=== PATIENT | female | born 1940 | race Hispanic/Latino ===

== ENCOUNTER 2018-02-10 16:48 | Emergency (ER) | payer OTHER ==
[~2018-02-10 16:48] MED LIST: ALBU8.5H8 IH; ASPI-888 PO; ATEN50TA PO; LEVO50TA11 PO; LISI-617 PO; SIMV40TA5 PO
== END 2018-02-10 19:19 | disposition home or self-care (01) ==
LOC: EDH 16:48
DX: M79.604 Pain in right leg (principal); I10 Essential (primary) hypertension; E78.5 Hyperlipidemia, unspecified; E07.9 Disorder of thyroid, unspecified; Z98.890 Other specified postprocedural states
CPT/HCPCS: 93971

== ENCOUNTER → 2018-03-16 | Outpatient (CLI) | payer OTHER | END | disposition home or self-care (01) | LOC: RAH 12:30 | PROVIDERS: ATTEND Internal Medicine | DX: I70.90 Unspecified atherosclerosis (principal); L98.499 Non-pressure chronic ulcer of skin of other sites with unspecified severity | CPT/HCPCS: 93926 ==

== ENCOUNTER 2019-03-05 08:25 | Inpatient (IN) | payer OTHER ==
[~2019-03-05] VITALS: Ht 170.2 cm; Wt 74.4 kg
[~2019-03-05 08:25] MED LIST changes: +SIMV-46 PO; -SIMV40TA5 PO
[2019-03-05] MEDS ORDERED: ASPIRIN 81MG TAB.CHEW ONE (08:57)
[2019-03-05] MEDS ORDERED: SODIUM CHLORIDE 0.9% 100 ML IV ONE (08:57)
[2019-03-05] MEDS ORDERED: DILTIAZEM HCL 125 MG/25 ML VIAL IV ONE (08:58)
[2019-03-05 09:07] LABS: BASOPHILS % (AUTO) 0.6 % (0.0-5.0); EOSINOPHILS % (AUTO) 2.3 % (0.0-8.0); HEMATOCRIT 38.7 % (36-48); LYMPHOCYTES % (AUTO) 11.6 % (21.0-51.0); MEAN CORPUSCULAR HEMOGLOBIN 29.9 pg (27.0-33.0); MONOCYTES % (AUTO) 10.4 % (3.0-13.0); NEUTROPHILS % (AUTO) 75.1 % (40.0-77.0); PLATELET COUNT (AUTO) 214 K/uL (130-400); RED CELL DISTRIBUTION WIDTH 13.8 % (11.0-15.5); WHITE BLOOD COUNT (AUTO) 10.1 K/uL (4.8-10.8)
[2019-03-05 09:08] LABS: POTASSIUM 3.7 mmol/L (3.5-5.1)
[2019-03-05 09:13] LABS: ALBUMIN 3.2 g/dL (3.5-5.0); BILIRUBIN,TOTAL 0.8 mg/dL (0.2-1.0); TOTAL PROTEIN, SERUM 7.4 g/dL (6.0-8.3)
[2019-03-05 09:17] LABS: INR 1.03 (0.85-1.15); PROTHROMBIN TIME 10.8 SEC (9.6-11.6)
[2019-03-05 09:18] LABS: APPEARANCE,URINE Clear (CLEAR); BILIRUBIN,URINE Negative (NEGATIVE); COLOR,URINE Yellow (YELLOW); GLUCOSE, URINE (UA) Negative (NEGATIVE); KETONES,URINE Trace mg/dL (NEGATIVE); LEUKOCYTE ESTERASE ,URINE Negative (NEGATIVE); NITRATE,URINE Negative (NEGATIVE); OCCULT BLOOD,URINE Trace (NEGATIVE); PH,URINE 6.5 (5.0-8.0); PROTEIN,URINE Negative (NEGATIVE)
[2019-03-05 09:33] LABS: BACTERIA,URINE Rare /HPF (None Seen); WBC,URINE 0-1 /HPF (0-1)
[2019-03-05 09:34] LABS: SQUAMOUS EPITHELIAL CELL,UR 0-2 /HPF (0-2)
[2019-03-05 09:38] LABS: B-TYPE NATRIURETIC PEPTIDE 129 pg/mL (0-100)
[2019-03-05] MEDS ORDERED: CEFTRIAXONE SODIUM 1 GM ONE (11:12)
[2019-03-05] MEDS ORDERED: LEVOFLOXACIN 500 MG/D5W 100 ML 100 ML ONE (11:12)
[2019-03-05] MEDS ORDERED: CALC1TAB2 PO (11:15)
[2019-03-05] MEDS ORDERED: ATEN25TA PO (11:15)
[2019-03-05] MEDS ORDERED: CHOL100044 PO (11:15)
[2019-03-05] MEDS ORDERED: ALBUTEROL SULFATE 0.083% 2.5 MG/3 ML INH IH PRN ×2 (11:30→14:00)
[2019-03-05] MEDS ORDERED: DILTIAZEM HCL 180 MG CAP.SR.24H PO SCH (11:30)
--- NOTE | 2019-03-05 11:47 | NUR ---
DCP: HOME Sw met with pt and daughters at bedside. Daughter Pebbles Agudelo [phone] is ER contact. pt lives independently at home alone, drives, has no DME or HH services. Pt denies dc needs, plan is home at dc Addendum: 03/05/19 at 1148 by LEONARDO SNEED Amended: Links added.
[2019-03-05] MEDS ORDERED: ALBUTEROL SULFATE 0.083% 2.5 MG/3 ML INH IH ONE ×2 (11:54→18:22)
[2019-03-05] MEDS ORDERED: ACETAMINOPHEN 325 MG TAB PO PRN ×2 (14:00)
[2019-03-05] MEDS ORDERED: POTASSIUM CHLORIDE 20 MEQ ERTAB PO PRN (14:00)
[2019-03-05] MEDS ORDERED: POTASSIUM CHLORIDE 20MEQ/100ML 100 ML IV PRN (14:00)
[2019-03-05] MEDS ORDERED: METOPROLOL TARTRATE 1 MG/ML 5ML VIAL IV PRN (14:00)
[2019-03-05] MEDS ORDERED: ONDANSETRON HCL 4 MG/2 ML VIAL IV PRN (14:00)
[2019-03-05] MEDS ORDERED: GUAIFENESIN-DM 200/20 MG 10 ML PO PRN (14:00)
[2019-03-05] MEDS ORDERED: LIDOCAINE HCL-MPF 1% 2ML VIAL IV PRN (14:00)
[2019-03-05] MEDS ORDERED: MAG HYDROX/AL HYDROX/SIMETH ES 30 ML SUSP UDCUP PO PRN (14:00)
[2019-03-05] MEDS: METHYLPREDNISOLONE SOD SUCC 125MG/2ML VIAL IVP SCH ×2 (14:00→22:29)
[2019-03-05] MEDS ORDERED: POTASSIUM CHLORIDE 10% ELIXIR 20 MEQ/15 ML UDCUP PO PRN (14:00)
[2019-03-05] MEDS ORDERED: CEFTRIAXONE SODIUM 1 GM IV SCH (14:00)
[2019-03-05] MEDS ORDERED: DIPHENHYDRAMINE HCL 25 MG CAPSULE PO PRN (14:00)
[2019-03-05] MEDS ORDERED: LACTULOSE 20 GM/30 ML UDCUP PO PRN (14:00)
[2019-03-05] MEDS ORDERED: DiphenhydrAMINE HCL 50 MG/ML VIAL IV PRN (14:00)
[2019-03-05] MEDS ORDERED: METHYLPREDNISOLONE SOD SUCC 40MG/ML 1ML ONE (15:53)
[2019-03-05] MEDS ORDERED: ENOXAPARIN SODIUM 30 MG/0.3 ML SQ ONE (15:53)
[2019-03-05] MEDS ORDERED: PANTOPRAZOLE SODIUM 40 MG TABLET.DR PO ONE (15:54)
[2019-03-05] MEDS ORDERED: ZOLPIDEM TARTRATE 5 MG TAB PO PRN (19:00)
[2019-03-05 19:43] LABS: CREATINE KINASE, TOTAL 43 U/L (21-232); MYOGLOBIN 45 ng/mL (10-92); TROPONIN I < 0.04 ng/mL (0.00-0.06)
[2019-03-05 20:05] VITALS: BP 98/50
--- NOTE | 2019-03-05 20:10 | NUR ---
ASSESSMENT PATIENT WAS TRANSFERRED BY STRETCHER FROM ER BY NURSE. PATIENT WAS TRANSFERRED TO BED AND APPEARED SLIGHTLY SOB ON EXERTION. PATIENT IS ALERT AND ORIENTED TO PERSON, PLACE, AND TIME. NO SIGNS OF DISTRESS. NO COMPLAINTS OF PAIN AT THIS TIME. PATIENT WAS ORIENTED TO ROOM AND CALL LIGHT WITHIN REACH. FAMILY AT BEDSIDE. NO QUESTIONS, CONCERNS, OR NEEDS AT THIS TIME.
[2019-03-05 20:54] VITALS: BP 102/53
[2019-03-05] MEDS ORDERED: DILTIAZEM HCL 120 MG CAP.SR.24H PO SCH (21:00)
--- NOTE | 2019-03-05 22:45 | NUR ---
DIAPHORETIC PATIENTS DAUGHTER CAME OUT OF ROOM AND VOICED THAT THE PATIENT WAS PROFUSELY SWEATING AND WAS COOL TO TOUCH. ON ASSESSMENT PATIENT WAS IN A DEEP SLEEP. WAS AROUSABLE TO VOICE. VOICED NO COMPLAINTS. PATIENTS BP WAS 103/53 WITH HR IN THE 60S. PATIENT TEMP WAS 98.3 AND A RANDOM GLUCOSE OF 224. PATIENT VOICES THAT SHE FEELS FINE OTHER THAN BEING SWEATY. WILL CONTINUE TO MONITOR PATIENT.
[2019-03-05 23:32] LABS: CREATINE KINASE, TOTAL 32 U/L (21-232); MYOGLOBIN 46 ng/mL (10-92); TROPONIN I < 0.04 ng/mL (0.00-0.06)
[2019-03-05 23:41] VITALS: BP 93/49
[2019-03-06 03:35] LABS: HEMATOCRIT 38.2 % (36-48); MEAN CORPUSCULAR HEMOGLOBIN 30.2 pg (27.0-33.0); MEAN CORPUSCULAR VOLUME 88.8 fL (79-99); PLATELET COUNT (AUTO) 216 K/uL (130-400); RED CELL DISTRIBUTION WIDTH 13.8 % (11.0-15.5); WHITE BLOOD COUNT (AUTO) 9.4 K/uL (4.8-10.8)
[2019-03-06 03:42] LABS: CREATININE 1.1 mg/dL (0.5-1.5); POTASSIUM 4.1 mmol/L (3.5-5.1)
--- NOTE | 2019-03-06 04:00 | NUR ---
ASSESSMENT PATIENT IS RESTING IN BED. FAMILY AT BEDSIDE. NO COMPLAINTS OF PAIN AT THIS TIME. NO SIGNS OF DISTRESS. NO SHORTNESS OF BREATH. CALL LIGHT WITHIN REACH. BEDSIDE TABLE WITHIN REACH. VOICES NO QUESTIONS, CONCERNS, OR NEEDS AT THIS TIME. PATIENT REINFORCED TO CALL FOR ANY NEEDS.
[2019-03-06 04:10] VITALS: BP 114/44
[2019-03-06] MEDS: METHYLPREDNISOLONE SOD SUCC 125MG/2ML VIAL IVP SCH (06:44)
[2019-03-06] MEDS ORDERED: SODIUM CHLORIDE 0.9% 1000ML 1,000 ML IV SCH (07:00)
[2019-03-06] MEDS ORDERED: ROSU5TAB12 PO (07:02)
[2019-03-06] MEDS ORDERED: DILT-36 PO (07:02)
[2019-03-06] MEDS ORDERED: LEVO500T2 PO (07:03)
[2019-03-06] MEDS ORDERED: PANTOPRAZOLE SODIUM 40 MG TABLET.DR PO SCH (07:30)
[2019-03-06] MEDS ORDERED: LEVOTHYROXINE 50 MCG TABLET PO SCH (07:30)
[2019-03-06 07:57] VITALS: BP 119/57
[2019-03-06] MEDS ORDERED: LEVOFLOXACIN 500 MG TABLET PO SCH (09:00)
[2019-03-06] MEDS ORDERED: ASPIRIN 81 MG EC TAB PO SCH (09:00)
[2019-03-06] MEDS ORDERED: SIMVASTATIN 20 MG TABLET PO SCH (09:00)
[2019-03-06] MEDS ORDERED: LISINOPRIL 5 MG TABLET PO SCH (09:00)
[2019-03-06] MEDS ORDERED: DILTIAZEM HCL 120 MG CAP.SR.24H PO SCH (09:00)
[2019-03-06] MEDS ORDERED: ENOXAPARIN SODIUM 30 MG/0.3 ML SQ SCH (09:00)
[2019-03-06] MEDS ORDERED: PRED10TA3 PO (09:09)
[2019-03-06 11:13] VITALS: BP 126/53
[2019-03-06] MEDS ORDERED: PREDNISONE 20 MG TABLET PO SCH (12:00)
[2019-03-06 16:11] VITALS: BP 124/48
--- NOTE | 2019-03-06 19:25 | NUR ---
DISCHARGE Patient discharged home at this time with family; telepack and piv removed; prescription given and copy placed in chart; dc instructions given; all questions answered
== END 2019-03-06 19:25 | disposition home or self-care (01) | DRG 190 ==
LOC: EDH 08:25 → EDHIP 11:00 → 2CH 19:58
PROVIDERS: ADMIT Internal Medicine; ATTEND Internal Medicine
DX: J44.0 Chronic obstructive pulmonary disease with (acute) lower respiratory infection (principal); J18.9 Pneumonia, unspecified organism; I48.92 Unspecified atrial flutter; J44.1 Chronic obstructive pulmonary disease with (acute) exacerbation; I48.91 Unspecified atrial fibrillation; E03.9 Hypothyroidism, unspecified; E78.5 Hyperlipidemia, unspecified; F17.200 Nicotine dependence, unspecified, uncomplicated; F32.9 Major depressive disorder, single episode, unspecified; G62.9 Polyneuropathy, unspecified; I13.10 Hypertensive heart and chronic kidney disease without heart failure, with stage 1 through stage 4 chronic kidney disease, or unspecified chronic kidney disease; I25.10 Atherosclerotic heart disease of native coronary artery without angina pectoris; I87.2 Venous insufficiency (chronic) (peripheral); M19.90 Unspecified osteoarthritis, unspecified site; N18.2 Chronic kidney disease, stage 2 (mild); Z79.899 Other long term (current) drug therapy; Z82.49 Family history of ischemic heart disease and other diseases of the circulatory system; I25.2 Old myocardial infarction
CPT/HCPCS: 36415; 71045; 80048; 80053; 81001; 82550; 82948; 83605; 83874; 83880; 84484; 85025; 85027; 85610; 85730; 87040; 93005; 93306; 94640; 94664; 94760; 99291; G0378; J0696; J1650; J1956; J2920; J2930; J3490

== ENCOUNTER 2019-07-19 07:39 | Day surgery (SDC) | payer OTHER ==
[~2019-07-19] VITALS: Ht 170.2 cm; Wt 74.8 kg
[~2019-07-19 07:39] MED LIST changes: -ALBU8.5H8 IH; +ATEN25TA PO; -ATEN50TA PO; +CARV3.12 PO; +ROSU5TAB12 PO; -SIMV-46 PO; +SODIUM CHLORIDE 0.9% 1000ML 1,000 ML IV ONE
[2019-07-19 08:59] VITALS: BP 122/61
[2019-07-19] MEDS ORDERED: PROPOFOL 10 MG/ML 20ML VIAL IV ONE (09:07)
[2019-07-19] MEDS ORDERED: GLYCOPYRROLATE 0.2 MG/ML 5 ML VIAL ONE (09:18)
[2019-07-19 09:37] VITALS: BP 84/48
[2019-07-19 09:41] VITALS: BP 96/51
[2019-07-19 09:46] VITALS: BP 113/60
[2019-07-19 09:51] VITALS: BP 117/65
[2019-07-19 09:58] VITALS: BP 109/67
== END 2019-07-19 10:07 | disposition home or self-care (01) ==
LOC: ENDO 07:39 → DAH 07:39 → ENDO 10:07
PROVIDERS: ATTEND Internal Medicine Gastroenterology
DX: K59.00 Constipation, unspecified (principal); K63.5 Polyp of colon; K57.30 Diverticulosis of large intestine without perforation or abscess without bleeding; E78.5 Hyperlipidemia, unspecified; I10 Essential (primary) hypertension; I25.10 Atherosclerotic heart disease of native coronary artery without angina pectoris; E11.9 Type 2 diabetes mellitus without complications; Z86.010 Personal history of colon polyps; Z79.899 Other long term (current) drug therapy; Z79.82 Long term (current) use of aspirin; Z80.0 Family history of malignant neoplasm of digestive organs; Z82.49 Family history of ischemic heart disease and other diseases of the circulatory system
CPT/HCPCS: 45380; 88305; A4215; A4221; A4222; A4223; A4606; A4615; A4663; J2704; J3490; J7030

== ENCOUNTER → 2019-11-25 | Outpatient (CLI) | payer OTHER ==
[~2019-11-25] MED LIST changes: -SODIUM CHLORIDE 0.9% 1000ML 1,000 ML IV ONE
== END | disposition home or self-care (01) ==
LOC: SHCH 10:44
PROVIDERS: ATTEND Internal Medicine Cardiovascular Disease
DX: I87.2 Venous insufficiency (chronic) (peripheral) (principal)
CPT/HCPCS: 93970

== ENCOUNTER 2020-08-04 16:58 | Emergency (ER) | payer OTHER ==
[~2020-08-04 16:58] MED LIST changes: -LISI-617 PO; +LISI-809 PO
[2020-08-04] MEDS ORDERED: ASPIRIN 325 MG TABLET ONE ×2 (17:19→17:31)
[2020-08-04] MEDS ORDERED: NITROGLYCERIN 1GM/1 INCH PACKET TD ONE (17:20)
[2020-08-04] MEDS ORDERED: NITROGLYCERIN 0.4 MG SL TAB SL ONE (17:20)
[2020-08-04 17:31] LABS: BASOPHILS % (AUTO) 0.6 % (0.0-5.0); EOSINOPHILS % (AUTO) 6.5 % (0.0-8.0); HEMATOCRIT 39.6 % (36-48); MEAN CORPUSCULAR HEMOGLOBIN 28.4 pg (27.0-33.0); MEAN CORPUSCULAR HGB CONC 32.8 g/dL (32.0-36.0); MEAN CORPUSCULAR VOLUME 86.7 fL (79-99); MONOCYTES % (AUTO) 9.8 % (3.0-13.0); PLATELET COUNT (AUTO) 256 K/uL (130-400); RED BLOOD CELL COUNT(AUTO) 4.57 MIL/uL (4.00-5.50); RED CELL DISTRIBUTION WIDTH 15.2 % (11.0-15.5)
[2020-08-04] MEDS ORDERED: MORPHINE SULFATE 2 MG/ML 1ML SYG ONE ×2 (17:32→18:02)
[2020-08-04] MEDS ORDERED: METOPROLOL TARTRATE 1 MG/ML 5ML VIAL IV ONE (17:32)
[2020-08-04] MEDS ORDERED: HEPARIN SODIUM 5000UNIT/ML 1ML VIAL ONE (17:32)
[2020-08-04] MEDS ORDERED: TICAGRELOR 90 MG TABLET ONE (17:41)
[2020-08-04 17:42] LABS: CREATININE 1.2 mg/dL (0.5-1.5); POTASSIUM 3.3 mmol/L (3.5-5.1)
[2020-08-04 17:43] LABS: INR 1.02 (0.85-1.15); PROTHROMBIN TIME 11.1 SEC (9.6-11.6)
[2020-08-04 17:45] LABS: PARTIAL THROMBOPLASTIN TIME 25.1 SEC (26.3-35.5)
[2020-08-04 17:47] LABS: ALBUMIN 4.1 g/dL (3.5-5.0); BILIRUBIN,TOTAL 0.3 mg/dL (0.2-1.0)
[2020-08-04 18:01] LABS: B-TYPE NATRIURETIC PEPTIDE 114 pg/mL (0-100)
[2020-08-04] MEDS ORDERED: ONDANSETRON HCL 4 MG/2 ML VIAL ONE (18:02)
== END 2020-08-04 18:42 | disposition short-term general hospital (02) ==
LOC: EDH 16:58
DX: I21.02 ST elevation (STEMI) myocardial infarction involving left anterior descending coronary artery (principal); I10 Essential (primary) hypertension; E78.5 Hyperlipidemia, unspecified; E07.9 Disorder of thyroid, unspecified; Z87.891 Personal history of nicotine dependence
CPT/HCPCS: 36415; 71045; 80053; 82550; 83880; 84484; 85025; 85610; 85730; 93005; 96374; 96375; 99291; J1644; J2405; J3490

== ENCOUNTER 2020-08-09 09:51 | Emergency (ER) | payer OTHER ==
[2020-08-09 10:43] LABS: BASOPHILS % (AUTO) 0.7 % (0.0-5.0); EOSINOPHILS % (AUTO) 6.2 % (0.0-8.0); LYMPHOCYTES % (AUTO) 24.5 % (21.0-51.0); MEAN CORPUSCULAR HEMOGLOBIN 29.3 pg (27.0-33.0); MEAN CORPUSCULAR HGB CONC 33.7 g/dL (32.0-36.0); MEAN CORPUSCULAR VOLUME 86.8 fL (79-99); MONOCYTES % (AUTO) 11.2 % (3.0-13.0); NEUTROPHILS % (AUTO) 57.2 % (40.0-77.0); PLATELET COUNT (AUTO) 217 K/uL (130-400); RED BLOOD CELL COUNT(AUTO) 4.03 MIL/uL (4.00-5.50); RED CELL DISTRIBUTION WIDTH 15.4 % (11.0-15.5); WHITE BLOOD COUNT (AUTO) 5.4 K/uL (4.8-10.8)
[2020-08-09 11:02] LABS: ALBUMIN 3.1 g/dL (3.5-5.0); BILIRUBIN,TOTAL 0.6 mg/dL (0.2-1.0); POTASSIUM 3.7 mmol/L (3.5-5.1); TOTAL PROTEIN, SERUM 6.8 g/dL (6.0-8.3)
[2020-08-09 11:14] LABS: B-TYPE NATRIURETIC PEPTIDE 674 pg/mL (0-100)
[2020-08-09] MEDS ORDERED: CLOPIDOGREL BISULFATE 300 MG TAB ONE (12:38)
== END 2020-08-09 13:04 | disposition home or self-care (01) ==
LOC: EDH 09:51
DX: R06.02 Shortness of breath (principal); T50.995A Adverse effect of other drugs, medicaments and biological substances, initial encounter; I10 Essential (primary) hypertension; E78.5 Hyperlipidemia, unspecified; E07.9 Disorder of thyroid, unspecified; I25.2 Old myocardial infarction; Y92.89 Other specified places as the place of occurrence of the external cause
CPT/HCPCS: 36415; 71045; 80053; 83880; 84484; 85025; 93005

== ENCOUNTER → 2022-02-08 | Outpatient (CLI) | payer OTHER ==
[~2022-02-08] MED LIST changes: -LISI-809 PO; +LISI5TAB21 PO
== END | disposition home or self-care (01) ==
LOC: RAH 06:47
PROVIDERS: ATTEND Internal Medicine Cardiovascular Disease
DX: N28.1 Cyst of kidney, acquired (principal); J84.10 Pulmonary fibrosis, unspecified
CPT/HCPCS: 71250

== ENCOUNTER → 2022-08-30 | Outpatient (CLI) | payer OTHER ==
[~2022-08-30] MED LIST changes: +ALBU2.5V2 IH; +APIX5TAB PO; +ASPI-1443 PO; -ASPI-888 PO; -ATEN25TA PO; +ATOR40TA71 PO; +CALC1TAB2 PO; +CLOP-31 PO; -LISI5TAB21 PO; -ROSU5TAB12 PO
== END | disposition home or self-care (01) ==
LOC: RAH 09:54
PROVIDERS: ATTEND Internal Medicine Critical Care Medicine
DX: J47.9 Bronchiectasis, uncomplicated (principal); J84.10 Pulmonary fibrosis, unspecified; J84.9 Interstitial pulmonary disease, unspecified; I25.10 Atherosclerotic heart disease of native coronary artery without angina pectoris; N28.1 Cyst of kidney, acquired; M47.815 Spondylosis without myelopathy or radiculopathy, thoracolumbar region
CPT/HCPCS: 71250

== ENCOUNTER 2022-09-22 20:18 | Emergency (ER) | payer OTHER ==
[~2022-09-22] VITALS: Ht 172.7 cm; Wt 76.7 kg
[2022-09-22] MEDS ORDERED: 0.9%NACL 1000ML 1,000 ML IV ONE (21:00)
[2022-09-22] MEDS ORDERED: ONDANSETRON 4MG INJ IVP ONE (21:00)
[2022-09-22 21:17] LABS: BASOPHILS % (AUTO) 0.8 % (0.0-5.0); EOSINOPHILS % (AUTO) 3.4 % (0.0-8.0); HEMATOCRIT 32.6 % (36-48); LYMPHOCYTES % (AUTO) 15.5 % (21.0-51.0); MEAN CORPUSCULAR HEMOGLOBIN 26.3 pg (27.0-33.0); MEAN CORPUSCULAR HGB CONC 31.6 g/dL (32.0-36.0); MEAN CORPUSCULAR VOLUME 83.4 fL (79-99); MONOCYTES % (AUTO) 8.5 % (3.0-13.0); NEUTROPHILS % (AUTO) 71.4 % (40.0-77.0); PLATELET COUNT (AUTO) 255 K/uL (130-400); RED BLOOD CELL COUNT(AUTO) 3.91 MIL/uL (4.00-5.50); WHITE BLOOD COUNT (AUTO) 7.4 K/uL (4.8-10.8)
[2022-09-22 21:18] LABS: APPEARANCE,URINE CLOUDY (CLEAR); BILIRUBIN,URINE NEGATIVE (NEGATIVE); COLOR,URINE COLORLESS (YELLOW); GLUCOSE, URINE (UA) NEGATIVE (NEGATIVE); KETONES,URINE NEGATIVE (NEGATIVE); LEUKOCYTE ESTERASE ,URINE 500 Leu/uL (NEGATIVE); NITRATE,URINE NEGATIVE (NEGATIVE); PROTEIN,URINE NEGATIVE (NEGATIVE); UROBILINOGEN,URINE 0.2 mg/dL (0.2-1.0)
[2022-09-22 21:20] LABS: BACTERIA,URINE FEW /HPF (None Seen); OTHER CASTS, URINE 1 /LPF (None Seen); SQUAMOUS EPITHELIAL CELL,UR RARE /HPF (0-2); WBC,URINE 51-100 /HPF (0-1); YEAST,URINE BUDDING RARE /HPF (None Seen)
[2022-09-22 21:35] LABS: ALBUMIN 3.6 g/dL (3.5-5.0); CREATININE 1.2 mg/dL (0.5-1.5); POTASSIUM 4.6 mmol/L (3.5-5.1); TOTAL PROTEIN, SERUM 7.2 g/dL (6.0-8.3)
[2022-09-22] MEDS ORDERED: IOHEXOL 350 MG/ML 100ML INFUS..BTL IV ONE (22:12)
[2022-09-22] MEDS ORDERED: CEFTRIAXONE 1G VIAL IM ONE (22:30)
[2022-09-22] MEDS ORDERED: CEPH500B PO (22:40)
[2022-09-22 22:47] VITALS: BP 134/64
== END 2022-09-22 23:03 | disposition home or self-care (01) ==
LOC: EDH 20:18
DX: N39.0 Urinary tract infection, site not specified (principal); Z79.01 Long term (current) use of anticoagulants; Z79.82 Long term (current) use of aspirin; Z79.899 Other long term (current) drug therapy; Z95.1 Presence of aortocoronary bypass graft
CPT/HCPCS: 99285; 71045; 84484; 80053; 85025; 87077; 87088; 87186; 83605; 81001; 36415; 96372; 93005; J0696; Q9967

== ENCOUNTER 2022-09-23 14:35 | Observation (INO) | payer OTHER ==
[~2022-09-23] VITALS: Ht 170.2 cm; Wt 79.8 kg
[~2022-09-23 14:35] MED LIST changes: +CEPH500B PO
[2022-09-23] MEDS ORDERED: ACETAMINOPHEN 500 MG TABLET ONE (15:11)
[2022-09-23 15:30] LABS: BASOPHILS % (AUTO) 0.6 % (0.0-5.0); EOSINOPHILS % (AUTO) 3.3 % (0.0-8.0); HEMATOCRIT 31.8 % (36-48); LYMPHOCYTES % (AUTO) 10.9 % (21.0-51.0); MEAN CORPUSCULAR HEMOGLOBIN 26.4 pg (27.0-33.0); MEAN CORPUSCULAR HGB CONC 31.1 g/dL (32.0-36.0); MEAN CORPUSCULAR VOLUME 84.8 fL (79-99); MONOCYTES % (AUTO) 12.1 % (3.0-13.0); NEUTROPHILS % (AUTO) 72.8 % (40.0-77.0); PLATELET COUNT (AUTO) 218 K/uL (130-400); RED BLOOD CELL COUNT(AUTO) 3.75 MIL/uL (4.00-5.50)
[2022-09-23] MEDS ORDERED: ACETAMINOPHEN 325 MG TAB PO ONE (15:30)
[2022-09-23 16:00] LABS: ALBUMIN 3.2 g/dL (3.5-5.0); POTASSIUM 3.9 mmol/L (3.5-5.1); TOTAL PROTEIN, SERUM 6.8 g/dL (6.0-8.3)
[2022-09-23 16:33] LABS: B-TYPE NATRIURETIC PEPTIDE 283 pg/mL (0-100)
[2022-09-23 16:34] LABS: APPEARANCE,URINE CLEAR (CLEAR); BILIRUBIN,URINE NEGATIVE (NEGATIVE); COLOR,URINE LIGHT-YELLOW (YELLOW); GLUCOSE, URINE (UA) NEGATIVE (NEGATIVE); KETONES,URINE NEGATIVE (NEGATIVE); LEUKOCYTE ESTERASE ,URINE 500 Leu/uL (NEGATIVE); NITRATE,URINE NEGATIVE (NEGATIVE); PH,URINE 6.5 (5.0-8.0); PROTEIN,URINE NEGATIVE (NEGATIVE); UROBILINOGEN,URINE 0.2 mg/dL (0.2-1.0)
[2022-09-23 16:37] LABS: BACTERIA,URINE RARE /HPF (None Seen); MUCUS,URINE RARE LPF (None Seen); SQUAMOUS EPITHELIAL CELL,UR RARE /HPF (0-2); WBC,URINE 26-50 /HPF (0-1)
[2022-09-23] MEDS ORDERED: ACETAMINOPHEN 325 MG TAB PO PRN ×2 (18:00→22:30)
[2022-09-23] MEDS ORDERED: ONDANSETRON 4MG INJ IVP PRN (18:00)
[2022-09-23] MEDS: ZOSYN 3.375GM +NS 50ML IVPB SCH (18:20)
[2022-09-23] MEDS ORDERED: 0.9%NACL 1000ML 1,000 ML IV SCH (18:30)
[2022-09-23 21:47] VITALS: BP 141/65
[2022-09-23] MEDS ORDERED: ACETAMINOPHEN 325 MG TAB ONE (22:32)
[2022-09-24] VITALS (7 sets, daily range): BP systolic 106–136; BP diastolic 55–72
[2022-09-24 04:42] LABS: HEMATOCRIT 30.5 % (36-48); MEAN CORPUSCULAR HEMOGLOBIN 26.3 pg (27.0-33.0); MEAN CORPUSCULAR HGB CONC 30.8 g/dL (32.0-36.0); MEAN CORPUSCULAR VOLUME 85.4 fL (79-99); PLATELET COUNT (AUTO) 199 K/uL (130-400); RED BLOOD CELL COUNT(AUTO) 3.57 MIL/uL (4.00-5.50); WHITE BLOOD COUNT (AUTO) 5.1 K/uL (4.8-10.8)
[2022-09-24 05:07] LABS: CREATININE 1.1 mg/dL (0.5-1.5); POTASSIUM 3.8 mmol/L (3.5-5.1)
[2022-09-24] MEDS ORDERED: TRAMADOL HCL 50 MG TABLET PO PRN (05:30)
[2022-09-24] MEDS: ZOSYN 3.375GM +NS 50ML IVPB SCH ×2 (05:38→17:47)
[2022-09-24] MEDS ORDERED: PANT40GR PO (06:23)
[2022-09-24] MEDS ORDERED: SACU1TAB PO (06:23)
[2022-09-24] MEDS ORDERED: CYAN10007 IJ (06:23)
[2022-09-24] MEDS ORDERED: FERR-72 PO (06:23)
[2022-09-24] MEDS ORDERED: MAG/ALUM/SIMETH 30 ML UDCUP PO PRN (06:30)
[2022-09-24] MEDS ORDERED: GUAIFENESIN-DM 200/20 MG 10 ML PO PRN (06:30)
[2022-09-24] MEDS ORDERED: ALBUTEROL 0.083% 2.5 MG/3 ML INH IH PRN (06:30)
[2022-09-24] MEDS ORDERED: LACTULOSE 20 GM/30 ML UDCUP PO PRN (06:30)
[2022-09-24] MEDS ORDERED: APIXABAN 5 MG TABLET PO SCH (09:00)
[2022-09-24] MEDS ORDERED: CYANOCOBALAMIN (VITAMIN B-12) 1000 MCG/ML 1ML VIAL IM SCH (09:00)
[2022-09-24] MEDS ORDERED: CLOPIDOGREL 75MG TAB PO SCH (09:00)
[2022-09-24] MEDS: FERROUS SULFATE 325 MG TABLET.DR PO SCH (09:00)
[2022-09-24] MEDS: SACUBITRIL/VALSARTAN 1 EACH TABLET PO SCH ×2 (09:16→21:02)
[2022-09-24] MEDS: PANTOPRAZOLE 40 MG TAB DR PO SCH (09:18)
[2022-09-24] MEDS: CA 600MG+VIT D 400 UNIT TAB 1 TAB TABLET PO SCH ×2 (09:19→21:03)
[2022-09-24] MEDS: LEVOTHYROXINE 50 MCG TABLET PO SCH (09:19)
[2022-09-24] MEDS: ATORVASTATIN 40 MG TABLET PO SCH (09:19)
[2022-09-24] MEDS: CARVEDILOL 3.125 MG TABLET PO SCH ×2 (09:20→21:03)
[2022-09-24] MEDS: ASPIRIN 81 MG EC TAB PO SCH (09:20)
[2022-09-24] MEDS ORDERED: LACTULOSE 20 GM/30 ML UDCUP PO ONE (11:30)
[2022-09-25 04:02] VITALS: BP 133/71
[2022-09-25] MEDS: ZOSYN 3.375GM +NS 50ML IVPB SCH (05:54)
[2022-09-25] MEDS: LEVOTHYROXINE 50 MCG TABLET PO SCH (05:58)
[2022-09-25 07:59] VITALS: BP 141/84
[2022-09-25] MEDS: PANTOPRAZOLE 40 MG TAB DR PO SCH (09:41)
[2022-09-25] MEDS: CARVEDILOL 3.125 MG TABLET PO SCH (09:41)
[2022-09-25] MEDS: ASPIRIN 81 MG EC TAB PO SCH (09:42)
[2022-09-25] MEDS: ATORVASTATIN 40 MG TABLET PO SCH (09:42)
[2022-09-25] MEDS: CA 600MG+VIT D 400 UNIT TAB 1 TAB TABLET PO SCH (09:42)
[2022-09-25] MEDS: SACUBITRIL/VALSARTAN 1 EACH TABLET PO SCH (09:42)
[2022-09-25] MEDS: FERROUS SULFATE 325 MG TABLET.DR PO SCH (09:42)
[2022-09-25] MEDS ORDERED: ALBUHFA IH (09:49)
[2022-09-25] MEDS ORDERED: LACT10SO9 PO (09:49)
[2022-09-25 11:40] VITALS: BP 122/82
== END 2022-09-25 12:15 | disposition home or self-care (01) ==
LOC: EDH 14:35 → INTOOBSV 17:51 → EDHIP 17:51 → 4BH 21:46
PROVIDERS: ADMIT Internal Medicine; ATTEND Internal Medicine
DX: N10 Acute pyelonephritis (principal); E86.0 Dehydration; K59.00 Constipation, unspecified; I25.10 Atherosclerotic heart disease of native coronary artery without angina pectoris; I25.2 Old myocardial infarction; I13.0 Hypertensive heart and chronic kidney disease with heart failure and stage 1 through stage 4 chronic kidney disease, or unspecified chronic kidney disease; E11.22 Type 2 diabetes mellitus with diabetic chronic kidney disease; I50.42 Chronic combined systolic (congestive) and diastolic (congestive) heart failure; N18.30 Chronic kidney disease, stage 3 unspecified; I73.9 Peripheral vascular disease, unspecified; E03.9 Hypothyroidism, unspecified; E78.00 Pure hypercholesterolemia, unspecified; I44.0 Atrioventricular block, first degree; L40.9 Psoriasis, unspecified; M19.90 Unspecified osteoarthritis, unspecified site; Z79.01 Long term (current) use of anticoagulants; Z79.02 Long term (current) use of antithrombotics/antiplatelets; Z79.899 Other long term (current) drug therapy; Z87.440 Personal history of urinary (tract) infections; Z87.891 Personal history of nicotine dependence; Z98.61 Coronary angioplasty status
CPT/HCPCS: 96365; 96366 ×3; 99284; 84484; 80053; 83880; 85025; 87040 ×2; 87088; 81001; 36415 ×2; 93005; 96372; 80048; 85027; 94640; 94664; J7030; J2543 ×4; J3420; G0378 ×2

== ENCOUNTER 2023-06-20 10:52 | Emergency (ER) | payer OTHER ==
[~2023-06-20] VITALS: Ht 167.6 cm; Wt 68.0 kg
[~2023-06-20 10:52] MED LIST changes: +ALBUHFA IH; -APIX5TAB PO; +CYAN10007 IJ; +FERR-72 PO; +LACT10SO9 PO; +PANT40GR PO; +SACU1TAB PO
[2023-06-20 12:16] LABS: HEMATOCRIT 39.9 % (36-48); MEAN CORPUSCULAR HGB CONC 32.3 g/dL (32.0-36.0); MEAN CORPUSCULAR VOLUME 86.7 fL (79-99); RED BLOOD CELL COUNT(AUTO) 4.6 MIL/uL (4.00-5.50); RED CELL DISTRIBUTION WIDTH 14.9 % (11.0-15.5); WHITE BLOOD COUNT (AUTO) 5.6 K/uL (4.8-10.8)
[2023-06-20] MEDS ORDERED: MECLIZINE HCL 25 MG TABLET PO ONE (12:30)
[2023-06-20 12:38] LABS: POTASSIUM 4.6 mmol/L (3.5-5.1)
[2023-06-20 12:41] LABS: ALBUMIN 3.4 g/dL (3.5-5.0); BILIRUBIN,TOTAL 0.6 mg/dL (0.2-1.0); TOTAL PROTEIN, SERUM 7.2 g/dL (6.0-8.3)
[2023-06-20 12:47] LABS: MAGNESIUM 2.2 mg/dL (1.80-2.40); THYROID STIMULATING HORMONE 3.75 uIU/mL (0.36-3.74)
[2023-06-20] MEDS ORDERED: 0.9%NACL 1000ML 1,000 ML IV ONE (13:30)
[2023-06-20 13:34] LABS: ADD UA MICROSCOPIC YES; APPEARANCE,URINE HAZY (CLEAR); BILIRUBIN,URINE NEGATIVE (NEGATIVE); COLOR,URINE LIGHT-YELLOW (YELLOW); GLUCOSE, URINE (UA) >=1000 mg/dL (NEGATIVE); KETONES,URINE NEGATIVE (NEGATIVE); LEUKOCYTE ESTERASE ,URINE 500 Leu/uL (NEGATIVE); NITRATE,URINE NEGATIVE (NEGATIVE); OCCULT BLOOD,URINE NEGATIVE (NEGATIVE); PH,URINE 5.5 (5.0-8.0); PROTEIN,URINE NEGATIVE (NEGATIVE); UROBILINOGEN,URINE 0.2 mg/dL (0.2-1.0)
[2023-06-20 13:36] LABS: BACTERIA,URINE MOD /HPF (None Seen); RBC,URINE 0-1 /HPF (0-1); SQUAMOUS EPITHELIAL CELL,UR RARE /HPF (0-2); WBC CLUMP FEW /HPF (0-1); WBC,URINE 51-100 /HPF (0-1)
[2023-06-20] MEDS ORDERED: MECL-302 PO (14:49)
[2023-06-20] MEDS ORDERED: PHEN-847 PO (14:49)
[2023-06-20] MEDS ORDERED: CEPH500B PO (14:49)
[2023-06-20] MEDS ORDERED: PHENAZOPYRIDINE HCL 200 MG TABLET PO ONE (15:00)
[2023-06-20] MEDS ORDERED: CEFTRIAXONE 2GM VIAL IVPB ONE (15:00)
[2023-06-20 15:34] VITALS: BP 128/70; PULSE 68; RESP 18; O2SAT 95
== END 2023-06-20 16:11 | disposition home or self-care (01) ==
LOC: EDH 10:52
DX: N39.0 Urinary tract infection, site not specified (principal); E86.0 Dehydration; E03.9 Hypothyroidism, unspecified; I10 Essential (primary) hypertension; E11.9 Type 2 diabetes mellitus without complications; K21.9 Gastro-esophageal reflux disease without esophagitis; I48.91 Unspecified atrial fibrillation; E78.00 Pure hypercholesterolemia, unspecified; Z79.82 Long term (current) use of aspirin; Z79.899 Other long term (current) drug therapy; Z98.890 Other specified postprocedural states
CPT/HCPCS: 99284; 96365; 96361; 84443; 83735; 84484; 80053; 83690; 85027; 87077; 87088; 87186; 81001; 36415; 93005; J0696

== ENCOUNTER → 2023-09-06 | Outpatient (CLI) | payer OTHER ==
[~2023-09-06] MED LIST changes: +MECL-302 PO; +PHEN-847 PO
== END | disposition home or self-care (01) ==
LOC: SHCH 08:14
PROVIDERS: ATTEND Internal Medicine Cardiovascular Disease
DX: I08.0 Rheumatic disorders of both mitral and aortic valves (principal); I25.5 Ischemic cardiomyopathy; R07.9 Chest pain, unspecified; I10 Essential (primary) hypertension; E78.5 Hyperlipidemia, unspecified
CPT/HCPCS: 93306

== ENCOUNTER → 2023-10-10 | Outpatient (CLI) | payer OTHER ==
[2023-10-10] MEDS: REGADENOSON 0.4 MG/5 ML PF SYG IVP ONE (15:12)
== END | disposition home or self-care (01) ==
LOC: SHCH 10:00
PROVIDERS: ATTEND Internal Medicine Cardiovascular Disease
DX: I25.110 Atherosclerotic heart disease of native coronary artery with unstable angina pectoris (principal); R06.00 Dyspnea, unspecified; R51.9 Headache, unspecified
CPT/HCPCS: 78452; 93017; J2785; A9500 ×2; 96374

== ENCOUNTER → 2023-10-18 | Outpatient (CLI) | payer OTHER | END | disposition home or self-care (01) | LOC: RAH 09:14 | PROVIDERS: ATTEND Internal Medicine | DX: M47.816 Spondylosis without myelopathy or radiculopathy, lumbar region (principal); M48.061 Spinal stenosis, lumbar region without neurogenic claudication; M41.86 Other forms of scoliosis, lumbar region; M54.50 Low back pain, unspecified; G89.29 Other chronic pain | CPT/HCPCS: 72100 ==

== ENCOUNTER → 2024-04-12 | Outpatient (CLI) | payer OTHER ==
[~2024-04-12] MED LIST changes: -ALBUHFA IH; +BUSP15 PO; -CEPH500B PO; +CHOL100034 PO; -CLOP-31 PO; +CYCL1DRO14 OP; +DAPA10TA PO; +FLUT1BLS3 IH; +LACT-441 PO; -LACT10SO9 PO; +LINA145C PO; -MECL-302 PO; +NITR0.4T50 SL; -PANT40GR PO; +PANT40TA54 PO; -PHEN-847 PO; +TICA90TA PO
[2024-04-12 12:31] LABS: BASOPHILS # (AUTO) 0.04 K/uL (0.00-0.20); BASOPHILS % (AUTO) 0.6 % (0.0-5.0); EOSINOPHILS # (AUTO) 0.45 K/uL (0.00-0.70); EOSINOPHILS % (AUTO) 6.6 % (0.0-8.0); HEMATOCRIT 36.7 % (36-48); IMMATURE GRANULOCYTE ABSOLUTE 0.03 K/uL (0-1); LYMPHOCYTES % (AUTO) 29.3 % (21.0-51.0); MEAN CORPUSCULAR VOLUME 76.6 fL (79-99); MONOCYTES # (AUTO) 0.7 K/uL (0.1-1.0); MONOCYTES % (AUTO) 9.7 % (3.0-13.0); NEUTROPHILS # (AUTO) 3.7 K/uL (1.8-7.7); NEUTROPHILS % (AUTO) 53.4 % (40.0-77.0); PLATELET COUNT (AUTO) 272 K/uL (130-400); RED BLOOD CELL COUNT(AUTO) 4.79 MIL/uL (4.00-5.50); RED CELL DISTRIBUTION WIDTH 23.9 % (11.0-15.5); WHITE BLOOD COUNT (AUTO) 6.8 K/uL (4.8-10.8)
[2024-04-12 12:57] LABS: BILIRUBIN,TOTAL 0.6 mg/dL (0.2-1.0); CREATININE 1.3 mg/dL (0.5-1.0); POTASSIUM 4.7 mmol/L (3.5-5.1); TOTAL PROTEIN, SERUM 7.6 g/dL (6.0-8.3)
== END | disposition home or self-care (01) ==
LOC: LAB 11:10
PROVIDERS: ATTEND Internal Medicine Cardiovascular Disease
DX: I25.5 Ischemic cardiomyopathy (principal); D63.8 Anemia in other chronic diseases classified elsewhere
CPT/HCPCS: 36415; 80053; 83880; 85025

== ENCOUNTER 2024-05-20 21:57 | Emergency (ER) | payer OTHER ==
[~2024-05-20] VITALS: Ht 167.6 cm; Wt 65.8 kg
[~2024-05-20 21:57] MED LIST changes: -BUSP15 PO; +FURO20TA4 PO; +RANO500T6 PO
[2024-05-20] MEDS ORDERED: DOPamine HCL 400 MG/D5%-WATER 250 ML IV ONE (21:58)
[2024-05-20] MEDS: NOREPINEPHRIN 4MG/NS 250ML 250 ML IV ONE (22:09)
[2024-05-20 22:10] VITALS: TEMP 96.1
[2024-05-20] MEDS: VASOpressin 20 UNITS/ML 1ML VIAL ONE (22:19)
[2024-05-20] MEDS: ondanSETRON 4MG INJ ONE (22:22)
--- NOTE | 2024-05-20 22:22 | NUR ---
PATIENT STARTED ON LEVO PER PROTOCOL; ED MD AT BEDSIDE
[2024-05-20] MEDS: AMIOdarone 150MG VIAL ONE (22:26)
[2024-05-20 22:28] VITALS: BP 42/30; PULSE 128; RESP 14; O2SAT 98
[2024-05-20 22:28] LABS: BASOPHILS # (AUTO) 0.06 K/uL (0.00-0.20); EOSINOPHILS # (AUTO) 0.24 K/uL (0.00-0.70); EOSINOPHILS % (AUTO) 4.2 % (0.0-8.0); HEMATOCRIT 35.4 % (36-48); IMMATURE GRANULOCYTE ABSOLUTE 0.01 K/uL (0-1); MEAN CORPUSCULAR HEMOGLOBIN 25.3 pg (27.0-33.0); MEAN CORPUSCULAR HGB CONC 31.6 g/dL (32.0-36.0); MEAN CORPUSCULAR VOLUME 80.1 fL (79-99); MONOCYTES # (AUTO) 0.6 K/uL (0.1-1.0); NEUTROPHILS # (AUTO) 2.8 K/uL (1.8-7.7); NEUTROPHILS % (AUTO) 48.6 % (40.0-77.0); PLATELET COUNT (AUTO) 268 K/uL (130-400); RED BLOOD CELL COUNT(AUTO) 4.42 MIL/uL (4.00-5.50); RED CELL DISTRIBUTION WIDTH 28.2 % (11.0-15.5); WHITE BLOOD COUNT (AUTO) 5.7 K/uL (4.8-10.8)
--- NOTE | 2024-05-20 22:28 | NUR ---
PATIENT REMAINS HYPOTENSIVE WHILE ON LEVO @MAXED RATE PER PROTOCOL; PATIENT STARTED ON VASO PER PROTOCOL ORDERED BY ED MD; ED MD AT BEDSIDE.
[2024-05-20] MEDS: DOPamine 800MG/D5 250ML 250 ML IV ONE (22:29)
[2024-05-20] MEDS ORDERED: NACL 0.9% IV SCH (22:30)
[2024-05-20] MEDS: ASPIRIN 325MG TAB PO ONE (22:30)
[2024-05-20] MEDS ORDERED: NOREPINEPHRIN 4MG/NS 250ML 250 ML IV SCH (22:30)
[2024-05-20] MEDS ORDERED: [UNRECOGNIZED DRUG - OTHER] IV SCH (22:30)
[2024-05-20] MEDS ORDERED: VASOPRESSIN IV SCH (22:30)
--- NOTE | 2024-05-20 22:30 | NUR ---
WIDE COMPLEX NOTED AND TACHY; ED MD AT BEDSIDE; AMIODARONE BOLUS ORDERED PER PROTOCOL.
--- NOTE | 2024-05-20 22:32 | NUR ---
PATIENT REMAINS HYPOTENSIVE WHILE ON LEVO, AND VASO @MAXED RATE PER PROTOCOL; PATIENT STARTED ON DOPAMINE PER PROTOCOL ORDERED BY ED MD; ED MD AT BEDSIDE.
[2024-05-20] MEDS: AMIOdarone 900MG VIAL 540 MG in DEXTROSE 5%-WATER 300 ML IV STA (22:38)
[2024-05-20] MEDS: AMIOdarone 900MG VIAL 360 MG in DEXTROSE 5%-WATER 200 ML IV STA (22:38)
[2024-05-20 22:39] LABS: ABG BASE EXCESS -11.8 mmol/L (-2.0-3.0); ABG HCO3 12.1 mmol/L (21.0-28.0); ABG PCO2 23 mmHg (32-45); CARBON MONOXIDE 0.8 % (0.5-1.5); DEVICE COMMENT LR DR; PO2, ARTERIAL BG 227.1 mmHg (83.0-108.0); VENT MODE, BG 100 NRB (ROOM AIR)
[2024-05-20 22:44] LABS: INR 1.06 (0.85-1.15); PROTHROMBIN TIME 11.8 SEC (9.6-11.6)
[2024-05-20 22:45] LABS: PARTIAL THROMBOPLASTIN TIME 23.8 SEC (26.3-35.5)
[2024-05-20 22:46] LABS: CREATININE 1.8 mg/dL (0.5-1.0); POTASSIUM 4.8 mmol/L (3.5-5.1)
--- NOTE | 2024-05-20 22:52 | NUR ---
CODE BLUE CALLED AT THIS TIME PER ED MD
--- NOTE | 2024-05-20 22:52 | NUR ---
REFER TO CODE BLUE SHEET
[2024-05-20] MEDS: ATROPINE 1MG SYG IVP ONE (22:54)
--- NOTE | 2024-05-20 22:54 | NUR ---
CPR STOPPED; PATIENT MOVEMENT NOTED; ED MD AT BEDSIDE
--- NOTE | 2024-05-20 22:56 | NUR ---
CODE BLUE CALLED;ED MD AT BEDSIDE CPR RESTARTED
[2024-05-20] MEDS: phenylEPHRINE HCL 10 MG/ML 1ML VIAL IV ONE (22:58)
[2024-05-20 23:04] LABS: B-TYPE NATRIURETIC PEPTIDE 726 pg/mL (0-100)
[2024-05-20] MEDS: LORazepam 2 MG/ML 1 ML VIAL ONE (23:10)
[2024-05-20] MEDS: morPHINE 4 MG SYG ONE (23:11)
[2024-05-20 23:14] LABS: MAGNESIUM 1.9 mg/dL (1.80-2.40)
--- NOTE | 2024-05-20 23:20 | NUR ---
Note fatimah in EDM - 05/20/24 at 2322 by ARA WIDE COMPLEX NOTED AND TACHY; ED MD AT BEDSIDE; AMIODARONE BOLUS ORDERED PER PROTOCOL.
[2024-05-20] MEDS: morPHINE 4 MG SYG IVP ONE (23:30)
[2024-05-20] MEDS: LORazepam 2 MG/ML 1 ML VIAL IVP ONE (23:30)
--- NOTE | 2024-05-21 00:12 | ERN ---
General Chief Complaint: Chest Pain Stated Complaint: CHEST PAIN Time Seen by MD: 22:05 History of Present Illness Initial Comments 83-year-old female who presents for chest pain and dizziness. Patient has multiple comorbidities. Apparently she had a normal day, but about an hour prior to arrival she started complaining of chest pain and dizziness. She has vomited multiple times. On arrival her blood pressure was 70 systolic. Allergies: Coded Allergies: No Known Drug Allergies (Unverified Allergy, Unknown, 11/28/16) Home Meds Active Scripts Ranolazine (Ranolazine ER) 500 Mg Tab.er.12h, 1 TAB PO BID for 90 Days, #180 TAB 1 Refill Prov:KP MARTE MD 04/30/24 Dapagliflozin Propanediol (Farxiga) 10 Mg Tablet, 1 TAB PO DAILY for 30 Days, #30 TAB 0 Refills Prov:KP MARTE MD 04/30/24 Furosemide (Furosemide) 20 Mg Tablet, 1 TAB PO AD for 30 Days, #30 TAB 0 Refills TAKE ONCE A WEEK Prov:KP MARTE MD 04/30/24 Atorvastatin Calcium (Atorvastatin Calcium) 40 Mg Tablet, 1 TAB PO DAILY for 90 Days, #90 TAB 90 Refills Prov:KP MARTE MD 04/30/24 Sacubitril/Valsartan (Entresto 24 mg-26 mg Tablet) 24 Mg-26 Mg Tablet, 0.5 EACH PO BID, #60 TAB 1 Refill hold for sbp < 110 Prov:KP MARTE MD 04/21/24 Carvedilol (Carvedilol) 3.125 Mg Tablet, 3.125 MG PO BID for HIGH BLOOD PRESSURE, #180 TAB hold for sbp < 110 Prov:KP MARTE MD 04/21/24 Ticagrelor (Brilinta) 90 Mg Tablet, 1 TAB PO BID for 30 Days, #60 TAB 2 Refills Prov:KP MARTE MD 03/16/24 Cyclosporine (Cyclosporine) 0.05 % Droperette, 1 EACH OP BID, #60 DROP Prov:KP MARTE MD 03/13/24 Cholecalciferol (Vitamin D3) (Vitamin D3) 25 Mcg (1000 Unit) Tab.chew, 25 MCG PO DAILY, #90 TAB.CHEW Prov:KP MARTE MD 03/13/24 Nitroglycerin (Nitroglycerin) 0.4 Mg Tab.subl, 0.4 MG SL AD PRN for CHEST PAIN, #30 TAB.SL Prov:KP MARTE MD 03/13/24 Fluticasone/Umeclidin/Vilanter (Trelegy Ellipta 100-62.5-25) 100-62.5 Blst.w.dev, 1 EACH IH DAILY, #30 EA Prov:KP MARTE MD 03/13/24 Pantoprazole Sodium (Pantoprazole Sodium) 40 Mg Tablet.dr, 40 MG PO BID, #180 TAB Prov:KP MARTE MD 03/13/24 Linaclotide (Linzess) 145 Mcg Capsule, 145 MCG PO DAILY, #30 CAP Prov:KP MARTE MD 03/13/24 Lactulose (Lactulose) 10 Gram/15 Ml Solution, 30 ML PO DAILY PRN for CONSTIPATION for 90 Days, #900 ML 0 Refills Prov:KP MARTE MD 03/13/24 Ferrous Sulfate (Ferrous Sulfate) 325 Mg (65 Mg Iron) Tablet, 325 MG PO DAILY, #30 TAB 1 Refill Prov:KP MARTE MD 03/13/24 Levothyroxine Sodium (Levothyroxine Sodium) 50 Mcg Tablet, 50 MCG PO AD for 90 Days, #90 TAB Prov:KP MARTE MD 03/13/24 Cyanocobalamin (Vitamin B-12) (Cyanocobalamin Injection) 1,000 Mcg/1 Ml Vial, 1000 MCG IJ QMONTH, #7 VIAL 1 Refill Prov:KP MARTE MD 09/24/22 Aspirin (Aspirin EC) 81 Mg Tablet.dr, 81 MG PO DAILY, #90 TAB 1 Refill Prov:KP MARTE MD 07/03/22 Atorvastatin Calcium (Atorvastatin Calcium) 40 Mg Tablet, 40 MG PO DAILY, #90 TAB 1 Refill Prov:KP MARTE MD 07/03/22 Calcium Carbonate/Vitamin D3 (Caltrate 600 + D Tablet) 1 Each Tablet, 1 EACH PO BID for CALCIUM SUPPLEMENT, #90 TAB Prov:KP MARTE MD 2/3/23 Albuterol Sulfate (Albuterol Sulfate) 2.5 Mg/3 Ml Vial.neb, 2.5 MG IH [id number] PRN for SHORTNESS OF BREATH/WHEEZING, #30 INH Prov:KP MARTE MD 07/01/22 Past Medical History Past Medical History: A-Fib, CAD, Diabetes-Type II, GERD, High Cholesterol, Heart Disease, Hypertension, LA, UTI Past Surgical History: Other Surgical History Other: STENT / LHC Social History Social History: Negative, Lives alone ROS Dictation Patient was in extremis, did not complete a full review of systems. Her chief complaints for chest pain, dizziness, and vomiting. Physical Exam Physical Exam Dictation Patient's extremis Generally patient was pale, lethargic Cardiac exam: Cool pale fingertips, delayed cap refill. Normal Heart tones. Respiratory: Clear lungs. GI No abdominal distention. MSK: Moving all limbs. Results Laboratory and Microbiology Lab and Micro Result Laboratory Tests Test 05/20/24 22:16 05/20/24 22:34 05/20/24 22:37 05/20/24 22:40 White Blood Count 5.7 K/uL (4.8-10.8) Red Blood Count 4.42 MIL/uL (4.00-5.50) Hemoglobin 11.2 g/dL (12.0-16.0) L Hematocrit 35.4 % (36-48) L Mean Corpuscular Volume 80.1 fL (79-99) Mean Corpuscular Hemoglobin 25.3 pg (27.0-33.0) L Mean Corpuscular Hemoglobin Concent 31.6 g/dL (32.0-36.0) L Red Cell Distribution Width 28.2 % (11.0-15.5) H Platelet Count 268 K/uL (130-400) Mean Platelet Volume 10.5 fL (7.5-10.5) Immature Granulocyte % (Auto) 0.2 % (0-1) Neutrophils (%) (Auto) 48.6 % (40.0-77.0) Lymphocytes (%) (Auto) 35.0 % (21.0-51.0) Monocytes (%) (Auto) 11.0 % (3.0-13.0) Eosinophils (%) (Auto) 4.2 % (0.0-8.0) Basophils (%) (Auto) 1.0 % (0.0-5.0) Neutrophils # (Auto) 2.8 K/uL (1.8-7.7) Lymphocytes # (Auto) 2.0 K/uL (1.0-4.8) Monocytes # (Auto) 0.6 K/uL (0.1-1.0) Eosinophils # (Auto) 0.24 K/uL (0.00-0.70) Basophils # (Auto) 0.06 K/uL (0.00-0.20) Absolute Immature Granulocyte (auto 0.01 K/uL (0-1) Nucleated Red Blood Cells 0.0 % (0.0-0.19) Red Blood Cell Morphology See comments Prothrombin Time 11.8 SEC (9.6-11.6) H Prothromb Time International Ratio 1.06 (0.85-1.15) Activated Partial Thromboplast Time 23.8 SEC (26.3-35.5) L Sodium Level 137 mmol/L (136-145) Potassium Level 4.8 mmol/L (3.5-5.1) Chloride Level 101 mmol/L (101-111) Carbon Dioxide Level 23 mmol/L (21-32) Blood Urea Nitrogen 20 mg/dL (7-18) H Creatinine 1.8 mg/dL (0.5-1.0) H Glomerular Filtration Rate Calc 27 mL/min (>90) Random Glucose 239 mg/dL (70-105) H Lactic Acid Level 3.5 mmol/L (0.8-2.5) H Total Calcium 9.0 mg/dL (8.5-10.1) Magnesium Level 1.90 mg/dL (1.80-2.40) Total Creatine Kinase 115 U/L (21-232) Troponin I High Sensitivity 27 ng/L (4-50) B-Type Natriuretic Peptide 726 pg/mL (0-100) H Triglycerides Level 138 mg/dL (30-200) Cholesterol Level 151 mg/dL (<200) # LDL Cholesterol 58 mg/dL (0-99) HDL Cholesterol 77 mg/dL (35-85) Whole Blood Glucose 175 MG/DL (70-110) H Blood Gas Specimen Type Arterial Arterial Blood pH 7.340 (7.350-7.450) Arterial Blood Partial Pressure CO2 23 mmHg (32-45) L Arterial Blood Partial Pressure O2 227.1 mmHg (83.0-108.0) H Arterial Blood HCO3 12.1 mmol/L (21.0-28.0) L Arterial Blood Oxygen Saturation 99.0 % (94.0-98.0) H Arterial Blood Base Excess -11.8 mmol/L (-2.0-3.0) L Hemoglobin (Blood Gas) 11.8 g/dL (12.0-16.0) L Sodium (Blood Gas) 130 MMOL/L (136-145) L Bedside Potassium (Blood Gas) 4.0 MMOL/L (3.4-4.5) Bedside Chloride (Blood Gas) 106 MMOL/L (98-107) Bedside Glucose (Blood Gas) 246 MG/DL (65-95) H Bedside Ionized Calcium (Blood Gas) 1.18 MMOL/L (1.15-1.33) Bedside Lactic Acid (Blood Gas) 5.05 MMOL/L (0.36-0.75) *H Blood Gas Temperature 37.0 CELSIUS (35.5-37.0) Blood Gas Flow-by 15.00 L/min (0.00-15.00) Blood Gas Vent Mode 100 NRB (ROOM AIR) FiO2 100.0 % Blood Gas Specimen Comment LR DR Troponin I < 0.05 ng/mL (0.00-0.05) MDM CC: Dizziness, chest pain SENIOR SOLUTIONS ENGINEER Historian: Patient Comorbidities: CAD recent stent, advanced age, hypertension, diabetes Limitations by social determinants of health: None Patient's blood pressure initially 70 systolic. She is tachycardic in the 130s. Clinical exam, she is in cardiogenic shock. Cool pale limbs. She was having chest pain SENIOR SOLUTIONS ENGINEER. EKG as interpreted by knee: Sinus rhythm left bundle branch block morphology, left axis deviation, possible ST elevation in V2. Otherwise no acute abnormalities. It is not an obvious STEMI I did consult Dr. Michael, on-call sanipractic physician. She agrees with the patient was not indicated go to the farm labor contractor directly. Since the patient had low blood pressure, patient was started on norepinephrine drip. Per blood pressure did not respond so she was also started on a vasopressin in eventually a dopamine drip. All of these were maxed out and she was still remaining hypotensive. I did consider other etiologies of the shock besides cardiogenic. The chest x-ray does show some vascular congestion but no cardiomegaly or signs of pericardial effusion. No signs of pneumothorax. Very low suspicion for an obstructive etiology. No signs of anaphylaxis. Low suspicion for sepsis. I did get a blood gas which showed a pH 7.3, pCO2 of 23, PaO2 of 227. Bicarb is 12 with a base excess -11. Lactic acid as five. The patient can to need to have low blood pressure and eventually started breathing down. We did try amiodarone. Also tried atropine. Eventually she was receiving switched doses of epinephrine. She began do arrest. CPR was began. ACLS protocol follow up. I had a conversation with the family at the bedside. Since the patient has a rested, in his 83 with multiple comorbidities I did discuss the option of ceasing resuscitation efforts periods the family had a discussion amongst themselves and decided to go with comfort measures. CPR efforts were stopped and the patient almost immediately . Family was at bedside. ED Course Orders Procedure Category Date Status Time Norepinephrin 4mg/Ns PHA 05/20/24 Complete 250ml (Levophed 4mg 22:09 Vital Signs Per CPOE 05/20/24 Transmitted Routine 22:15 B-Type Natriuretic LAB 05/20/24 Complete Peptide 22:15 Chest 1vw RAD 05/20/24 Taken 22:15 12 Lead Ekg Tracing- EKG 05/20/24 Logged Technical 22:15 Oxygen By Nc/Pulse Ox CPOE 05/20/24 Transmitted 22:15 Maintain Iv CPOE 05/20/24 Transmitted 22:15 Iv Insertion CPOE 05/20/24 Transmitted 22:15 Cardiac Monitoring CPOE 05/20/24 Transmitted 22:15 Pulse Oximetry With CPOE 05/20/24 Transmitted Vs And Prn 22:15 Cbc With Differential LAB 05/20/24 Complete 22:15 Activity: Br W/Brp CPOE 05/20/24 Transmitted With Assist 22:15 Creatine Kinase, Total LAB 05/20/24 Complete 22:15 Urinalysis Profile LAB 05/20/24 In Process 22:15 Troponin Poc Order LAB 05/20/24 Complete Only 22:15 Bedside Troponin-I LAB.ER 05/20/24 Complete (Poc) 22:15 Basic Metabolic Panel LAB 05/20/24 Complete 22:15 Vasopressin 20 PHA 05/20/24 Complete Units/Ml 1ml Vi 22:19 Ondansetron 4mg Inj PHA 05/20/24 Complete (Zofran 4mg Inj) 22:22 Prothrombin Time With LAB 05/20/24 Complete INR 22:22 Lipid Panel LAB 05/20/24 Complete 22:22 Magnesium LAB 05/20/24 Complete 22:22 Troponin I High LAB 05/20/24 Complete Sensitivity 22:22 Aspirin 325mg Tab PHA 05/20/24 Complete (Aspirin 325mg Tab) 22:30 Partial LAB 05/20/24 Complete Thromboplastin Time 22:22 Norepinephrin 4mg/Ns PHA 05/20/24 Complete 250ml (Levophed 4mg 22:30 Vasopressin 20 PHA 05/20/24 Complete Units/Ml 1ml Vi 22:30 Lactic Acid LAB 05/20/24 Complete 22:22 Amiodarone 150mg Vial PHA 05/20/24 Complete (Cordarone 150mg V 22:26 Dopamine 800mg/D5 PHA 05/20/24 Complete 250ml (Intropin 800 Mg 22:29 Arterial Blood Gas LAB 05/20/24 Complete Arterial + 22:37 Amiodarone 900mg Vial PHA 05/20/24 Complete (Cordarone 900mg V 22:38 Amiodarone 900mg Vial PHA 05/20/24 Complete (Cordarone 900mg V 22:38 Atropine 1mg Syg PHA 05/20/24 Complete (Atropine 1mg Syg) 22:54 Phenylephrine Hcl PHA 05/20/24 Complete (Phenylephrine Hcl) 22:58 Lorazepam 2 Mg PHA 05/20/24 Complete (Ativan) 23:30 Morphine 4mg Syg PHA 05/20/24 Complete (Morphine 4mg Syg) 23:30 Lorazepam 2 Mg PHA 05/20/24 Complete (Ativan) 23:10 Morphine 4mg Syg PHA 05/20/24 Complete (Morphine 4mg Syg) 23:11 Current Medications Medications (Trade) Dose Ordered Sig/Kelli Route PRN Reason Start Time Stop Time Status Last Admin Dose Admin Amiodarone HCl (cordARONE 150MG VIAL) 150 mg STK-MED ONCE .ROUTE 05/20/24 22:26 05/20/24 22:26 DC Amiodarone HCl 360 mg/Dextrose 200 ml @ 0 mls/hr PROTOCOL STAT IV 05/20/24 22:38 05/20/24 22:40 DC Amiodarone HCl 540 mg/Dextrose 300 ml @ 0 mls/hr PROTOCOL STAT IV 05/20/24 22:38 05/20/24 22:40 DC Aspirin (Aspirin 325mg Tab) 325 mg ONCE ONCE PO 05/20/24 22:30 05/20/24 22:31 DC Atropine Sulfate (Atropine 1mg Syg) 1 mg STK-MED ONCE IVP 05/20/24 22:54 05/20/24 22:54 DC Dopamine HCl/ Dextrose 250 ml @ As Directed STK-MED ONCE IV 05/20/24 22:29 05/20/24 22:29 DC Lorazepam (AtiVAN) 1 mg ONCE ONCE IVP 05/20/24 23:30 05/20/24 23:32 DC Lorazepam (AtiVAN) 2 mg STK-MED ONCE .ROUTE 05/20/24 23:10 05/20/24 23:11 DC Morphine Sulfate (morPHINE 4MG SYG) 4 mg ONCE ONCE IVP 05/20/24 23:30 05/20/24 23:32 DC Morphine Sulfate (morPHINE 4MG SYG) 4 mg STK-MED ONCE .ROUTE 05/20/24 23:11 05/20/24 23:11 DC Norepinephrine 250 ml @ As Directed STK-MED ONCE IV 05/20/24 22:09 05/20/24 22:11 DC Norepinephrine 250 ml @ 0 mls/hr PROTOCOL IV 05/20/24 22:30 05/21/24 01:50 DC Ondansetron HCl (zoFRAN 4MG INJ) 4 mg STK-MED ONCE .ROUTE 05/20/24 22:22 05/20/24 22:22 DC Phenylephrine HCl (phenylEPHRINE HCL) 10 mg STK-MED ONCE IV 05/20/24 22:58 05/20/24 22:58 DC Vasopressin (PITRessin 20 U/ mL 1ml vial) 20 units STK-MED ONCE .ROUTE 05/20/24 22:19 05/20/24 22:19 DC Vasopressin 20 units/Sodium Chloride 251 ml @ 0 mls/hr PROTOCOL IV 05/20/24 22:30 05/21/24 01:50 DC Vital Signs Date Time Temp Pulse Resp B/P (MAP) Pulse Ox O2 Delivery O2 Flow Rate FiO2 05/20/24 22:28 128 14 42/30 98 Non-Rebreather+ 15 100 05/20/24 22:22 107 16 48/34 97 Non-Rebreather+ 15 100 05/20/24 22:15 99 26 69/35 98 Nasal Cannula* 2 28 05/20/24 22:10 96.1 103 26 60/35 98 Nasal Cannula* 2 28 05/20/24 22:05 98.1 111 20 64/44 98 Nasal Cannula 2.0 DX & DISP Disposition: Departure Impression: Primary Impression: Cardiac arrest Critical Time: 30 minutes (Critical Care Procedure NoteAuthorized and Performed by: meTotal critical care time: Approximately 36 minutesDue to a high probability of clinically significant, life threatening deterioration, the patient required my highest level of preparedness to intervene emergently and I personally spent this critical care time directly and personally managing the patient. This critical care time included obtaining a history; examining the patient; pulse oximetry; ordering and review of studies; arranging urgent treatment with development of a management plan; evaluation of patient's response to treatment; frequent reassessment; and, discussions with other providers.This critical care time was performed to assess and manage the high probability of imminent, life-threatening deterioration that could result in multi-organ failure. It was exclusive of separately billable procedures and treating other patients and teaching time.Please see MDM section and the rest of the note for further information on patient assessment and treatment.) Condition: Referrals: KP MARTE MD (PCP) JULIANO MOTLEY DO May 21, 2024 00:12
--- NOTE | 2024-05-21 01:43 | NUR ---
PT BEING TAKEN BY SERVICES AT THIS TIME, FAMILY AT BEDSIDE
--- NOTE | 2024-05-21 05:20 | EKG ---
[facility] Test Date: 2024-05-20 Test Time: 22:05:48 Pat Name: MIGEL AGUDELO Department: [facility] Room: Gender: F Senior Lead Developer: [id number] : 1940 Requested By: JULIANO MOTLEY Order Number: [id number] Reading MD: Juan Agudelo Measurements Intervals Todd Rate: 104 P: 0 NJ: 0 QRS: -67 QRSD: 172 T: 134 QT: 446 QTc: 586 Interpretive Statements Atrial fibrillation with RVR Left bundle branch block Compared to ECG 04/24/2024 11:26:26 Left bundle-branch block now present Sinus rhythm no longer present First degree AV block no longer present Left anterior fascicular block no longer present Right bundle-branch block no longer present Myocardial infarct finding no longer present T-wave abnormality no longer present Electronically Signed On 05-21-2024 17:24:24 QUALITY ASSURANCE QA LAB ANALYST by Juan Agudelo Please click the below link to view image of tracing.
--- NOTE | 2024-05-21 07:29 | EKG ---
[facility] Test Date: 2024-05-20 Test Time: 22:22:07 Pat Name: MIGEL AGUDELO Department: [facility] Room: Gender: Female Scratch Polisher: [id number] : 1940 Requested By: JULIANO MOTLEY Order Number: [id number] Reading MD: Juan Agudelo Measurements Intervals [place] Rate: 126 P: 0 NM: 200 QRS: -69 QRSD: 207 T: 128 QT: 420 QTc: 609 Interpretive Statements Accelerated idioventricular rhythm Left bundle branch block ST elevation secondary to IVCD Compared to ECG 05/20/2024 22:05:48 Intraventricular conduction delay now present ST (T wave) deviation now present Atrial fibrillation no longer present Electronically Signed On 05-21-2024 17:25:21 TECHNICAL REPORT WRITER by Juan Agudelo Please click the below link to view image of tracing.
--- NOTE | 2024-05-21 08:46 | HMCIMG ---
Exam Type: CHEST 1VW Clinical Information: CHEST PAIN Comparison: None Findings: There is cardiomegaly. There is prominence of the vascular markings consistent with pulmonary venous congestion. IMPRESSION: Findings consistent with pulmonary venous congestion.
== END 2024-05-20 23:45 ==
LOC: EDH 21:57
DX: I46.9 Cardiac arrest, cause unspecified (principal); E11.9 Type 2 diabetes mellitus without complications; E78.00 Pure hypercholesterolemia, unspecified; I10 Essential (primary) hypertension; I25.10 Atherosclerotic heart disease of native coronary artery without angina pectoris; I48.91 Unspecified atrial fibrillation; K21.9 Gastro-esophageal reflux disease without esophagitis; Z60.2 Problems related to living alone; Z79.02 Long term (current) use of antithrombotics/antiplatelets; Z79.621 Long term (current) use of calcineurin inhibitor; Z79.82 Long term (current) use of aspirin; Z79.84 Long term (current) use of oral hypoglycemic drugs; Z79.899 Other long term (current) drug therapy; Z87.440 Personal history of urinary (tract) infections
CPT/HCPCS: 99291; 92950; 71045; 80061; 82947; 82550; 83735; 84484 ×2; 80048; 82803; 83880; 85025; 85610; 85730; 83605 ×2; 36415; 36600; 93005 ×2; 82435; 84132; 84295; 85018; 82948; J3490 ×2; J0171; J0461; J7060 ×2; J2405; J2060; J2270; J1265 ×2; J2371; J0282 ×3